=== PATIENT | female | born 1950 | race Caucasian/White ===

== ENCOUNTER → 2022-12-30 | Day surgery (SDC) | payer MEDICARE ==
[2022-12-25 10:28] LABS: BASOPHILS % 0.5 % (0.0-1.0); EOSINOPHILS # (AUTO) 0.1 (0.0-0.4); EOSINOPHILS % 1.7 % (0.0-6.0); HEMATOCRIT 38.8 % (34.2-44.1); HEMOGLOBIN 12.3 g/dL (12.0-16.0); LYMPHOCYTES # (AUTO) 1.2 (1.0-3.2); LYMPHOCYTES % 21.1 % (18.0-39.1); MEAN CORPUSCULAR HEMOGLOBIN 31.5 pg (28-32); MEAN CORPUSCULAR HGB CONC 31.7 g/dL (31-35); MEAN CORPUSCULAR VOLUME 99.2 fL (81-99); MONOCYTES # (AUTO) 0.7 (0.2-0.8); MONOCYTES % 11.7 % (4.4-11.3); NEUTROPHILS # (AUTO) 3.8 (2.1-6.9); NEUTROPHILS % 64.7 % (38.7-80.0); PLATELET COUNT 212 x10e3/uL (140-360); RED BLOOD COUNT 3.91 x10e6/uL (3.6-5.1); RED CELL DISTRIBUTION WIDTH 13.9 % (11.7-14.4)
[~2022-12-30] MED LIST: COQ-10100 MG PO; CURCUMIN10 GM PO; FISH OIL 1,0001 EAC7 PO; LIDOCAINE HCL 2% LOCAL INJ 5 ML SDV VIAL INJ ONE; METROGEL60 GM TOP; MULTI-VITAMIN1 EACH PO; NP THYROID90 MG PO; OMEPRAZOLE40 MG PO; POVIDONE IODINE 0.05% 0.05 % ML PO ONE; PROBIOTIC & AC1 EACH PO; PROPOFOL IV EMULSION 10 MG/ML 20 ML VIAL ONE; VITAMIN B-121000 MCG PO; [UNRECOGNIZED DRUG - OTHER] TOP
[2022-12-30 10:50] VITALS: BP 142/76
== END | disposition home or self-care (01) ==
LOC: OR 06:42
PROVIDERS: ATTEND Internal Medicine Gastroenterology
DX: K29.50 Unspecified chronic gastritis without bleeding (principal); D12.2 Benign neoplasm of ascending colon; D12.3 Benign neoplasm of transverse colon; K63.89 Other specified diseases of intestine; K59.09 Other constipation; K44.9 Diaphragmatic hernia without obstruction or gangrene; Z01.810 Encounter for preprocedural cardiovascular examination; Z01.812 Encounter for preprocedural laboratory examination; Z79.899 Other long term (current) drug therapy
CPT/HCPCS: 36415; 43239; 45380; 45384; 45385; 85025; 88305; 88342; 93005; J2001; J2704; 88304; 88312